=== PATIENT | male | born 1980 | race Caucasian/White ===

== ENCOUNTER 2022-10-30 07:23 | Emergency (ER) | payer OTHER ==
[2022-10-30] MEDS ORDERED: HYDROmorphone 1 MG/ML Syringe IVPUSH ONE (08:06)
[2022-10-30] MEDS ORDERED: HYDROmorphone 1 MG/ML Syringe ONE (08:08)
== END 2022-10-30 09:30 | disposition home or self-care (01) ==
LOC: MW.ED 07:23
DX: S82.52XA Displaced fracture of medial malleolus of left tibia, initial encounter for closed fracture (principal); S82.62XA Displaced fracture of lateral malleolus of left fibula, initial encounter for closed fracture; Z79.899 Other long term (current) drug therapy; X50.1XXA Overexertion from prolonged static or awkward postures, initial encounter; Y99.0 Civilian activity done for income or pay
CPT/HCPCS: 27810; 73600; 73610; 99283; J1170; 29515; 99284

== ENCOUNTER 2022-11-04 11:45 | Day surgery (SDC) | payer OTHER ==
[~2022-11-04 11:45] MED LIST: Lactated Ringers 1,000 ML IV SCH; ceFAZolin 2 GM in Premix Bag 1 BAG IV SCH
[2022-11-04] MEDS ORDERED: Metoclopramide 10 MG/2 ML SDV IVPUSH PRN (12:04)
[2022-11-04] MEDS ORDERED: Naloxone 0.4 MG/ML SDV IVPUSH PRN (12:04)
[2022-11-04] MEDS ORDERED: Ondansetron 4 MG/2 ML SDV IVPUSH PRN (12:04)
[2022-11-04] MEDS ORDERED: fentaNYL 50 MCG/ML SDV IVPUSH PRN (12:04)
[2022-11-04] MEDS ORDERED: Albuterol 0.083% 2.5 MG/3 ML Neb Soln NEB PRN (12:04)
[2022-11-04] MEDS ORDERED: HYDROmorphone 1 MG/ML Syringe IVPUSH PRN ×2 (12:04→16:28)
[2022-11-04] MEDS ORDERED: Morphine 2 MG/ML SYRINGE IVPUSH PRN (12:04)
[2022-11-04] MEDS ORDERED: Ropivacaine 0.5% 5 MG/ML 30 ML SDV ONE (12:15)
[2022-11-04] MEDS ORDERED: fentaNYL 100 MCG/2 ML SDV ONE ×4 (12:32→15:17)
[2022-11-04] MEDS ORDERED: Midazolam 1 MG/ML 2 ML SDV ONE (12:32)
[2022-11-04] MEDS ORDERED: Dexmedetomidine 200 MCG/2 ML SDV ONE (12:32)
[2022-11-04] MEDS ORDERED: Propofol 200 MG/20 ML SDV ONE (12:36)
[2022-11-04] MEDS ORDERED: Lidocaine 2% 5 ML SDV ONE (12:38)
[2022-11-04] MEDS ORDERED: Bupivacaine 0.25% 30 ML SDV ONE (12:43)
[2022-11-04] MEDS ORDERED: ceFAZolin 1 GM Vial ONE (12:43)
[2022-11-04] MEDS ORDERED: ceFAZolin 2 GM Vial ONE (13:46)
[2022-11-04] MEDS ORDERED: Ondansetron 4 MG/2 ML SDV ONE (13:55)
[2022-11-04] MEDS ORDERED: Dexamethasone 4 MG/ML 5 ML MDV ONE (13:55)
[2022-11-04] MEDS ORDERED: ePHEDrine 50 MG/ML SDV ONE (14:00)
[2022-11-04] MEDS ORDERED: Ketorolac 30 MG/ML SDV ONE (14:45)
[2022-11-04] MEDS: HYDROmorphone 2 MG/ML Syringe ONE ×2 (16:24→16:31)
[2022-11-04] MEDS ORDERED: Methocarbamol 750 MG TAB PO ONE (16:45)
== END 2022-11-04 17:00 | disposition home or self-care (01) ==
LOC: MW.SDS 11:45
PROVIDERS: ATTEND Orthopaedic Surgery
DX: S82.842A Displaced bimalleolar fracture of left lower leg, initial encounter for closed fracture (principal); S93.432A Sprain of tibiofibular ligament of left ankle, initial encounter; G47.33 Obstructive sleep apnea (adult) (pediatric); F31.9 Bipolar disorder, unspecified; F41.9 Anxiety disorder, unspecified; E66.9 Obesity, unspecified; Z79.899 Other long term (current) drug therapy; Z87.891 Personal history of nicotine dependence; Z98.890 Other specified postprocedural states; X58.XXXA Exposure to other specified factors, initial encounter
CPT/HCPCS: 27814; 27829; 76000; A9270; J0131; J0690; J1100; J1170; J1885; J2250; J2405; J2704; J2795; J3010; J7120; J3490